=== PATIENT | male | born 1990 | race Caucasian/White ===

== ENCOUNTER 2019-01-16 14:53 | Emergency (ER) | payer BC, OTHER ==
[~2019-01-16] VITALS: Ht 177.8 cm; Wt 144.0 kg
[~2019-01-16 14:53] MED LIST: FAMO-96 PO
[2019-01-16 15:04] VITALS: BP 131/75; PULSE 84; RESP 18; Ht 177.8 cm; Wt 144.0 kg
== END 2019-01-16 16:40 | disposition home or self-care (01) ==
LOC: FTE 14:53
DX: R07.9 Chest pain, unspecified (principal)
CPT/HCPCS: 71045; 80053; 84484; 93005; Z7502; Z7610